=== PATIENT | female | born 1950 | race Two or more races ===

== ENCOUNTER 2025-05-14 13:57 | Emergency (ER) | payer MEDICARE, OTHER ==
[~2025-05-14] VITALS: Ht 154.9 cm; Wt 95.3 kg
[2025-05-14] MEDS ORDERED: KETOROLAC TROMETHAMINE 15 MG/ML VIAL ONE (14:32)
[2025-05-14] MEDS: IV NS 0.9% 500 ML BAG IV ONE (15:02)
[2025-05-14] MEDS: KETOROLAC TROMETHAMINE 15 MG/ML VIAL IV ONE (15:04)
[2025-05-14 15:19] LABS: PLATELET COUNT (AUTO) 169 K/uL (150-450); RED BLOOD CELL COUNT(AUTO) 3.65 MIL/uL (4.0-5.2); RED CELL DISTRIBUTION WIDTH 14.2 % (11.5-15.0); WHITE BLOOD COUNT (AUTO) 5.3 K/uL (4.3-11.0)
[2025-05-14 15:32] LABS: ASPARTATE AMINOTRANSFERASE 68.0 U/L (15-37); CREATININE 0.8 mg/dL (0.6-1.3); SODIUM SERUM 139.0 mmol/L (136-145); TOTAL PROTEIN, SERUM 7.7 g/dL (6.4-8.2); UREA NITROGEN, BLOOD 27.0 mg/dL (7-18)
[2025-05-14 15:36] LABS: CALCIUM, SERUM 8.6 mg/dL (8.5-10.1)
[2025-05-14 15:40] LABS: APPEARANCE,URINE CLEAR (CLEAR); BLOOD, URINE TRACE-INTA Ery/uL (NEGATIVE); LEUKOCYTE ESTERASE ,URINE TRACE (NEGATIVE); NITRITE, URINE NEGATIVE (NEGATIVE); UGLUCOSE NEGATIVE (NEGATIVE)
[2025-05-14 15:54] LABS: ADD URINE CULTURE NO; SQUAMOUS EPITHELIAL CELL,UR 0-2 /HPF (None Seen)
[2025-05-14] MEDS ORDERED: KETO10TA2 PO (17:39)
[2025-05-14] MEDS ORDERED: HYDR-4209 PO (17:39)
[2025-05-14] MEDS ORDERED: MORPHINE SULFATE INJ 4 MG/ML DISP.SYRIN ONE (17:55)
[2025-05-14] MEDS: MORPHINE SULFATE INJ 2 MG/ML DISP.SYRIN IV ONE (18:01)
[2025-05-14 18:32] VITALS: BP 160/78; TEMP 98.3; O2SAT 99
== END 2025-05-14 18:33 | disposition home or self-care (01) ==
LOC: ER 14:11
DX: N28.1 Cyst of kidney, acquired (principal); R10.A1 Flank pain, right side; I10 Essential (primary) hypertension; E11.9 Type 2 diabetes mellitus without complications; Z90.49 Acquired absence of other specified parts of digestive tract
CPT/HCPCS: 99285; 74176; 96374; 96375; 85025; 80048; 83690; 80076; 81001; 36415; J1885; J2270; J7040